=== PATIENT | male | born 1980 | race Caucasian/White ===

== ENCOUNTER 2016-09-18 19:42 | Emergency (ER) | payer BC ==
[2016-09-18 20:19] VITALS: BP 110/53
[2016-09-18] MEDS ORDERED: NS 0.9% 1000 ML* 1,000 ML BOLUS ONE (20:33)
[2016-09-18] MEDS ORDERED: Famotidine IV* 10 MG/ML 2 ML (20 mg) IV SLOW PU ONE (20:33)
[2016-09-18] MEDS ORDERED: Ondansetron INJ* 2 MG/ML VIAL IV ONE (20:33)
--- NOTE | 2016-09-18 20:55 | UC ---
Abdominal Pain Male HPI - HPI Summary HPI Summary: 35 yo male has the onset of diffuse abd pain and n/v x 2 no fever unable to get comfortable no radiation of pain to back no UTI symptoms diarrhea or black/bloody stools Hx PUD/ESOPHAGEAL EROSION TOOK 800MG MOTRIN LAST PM FOR HIS NECK - History of Current Complaint Chief Complaint: UCAbdominalPain Stated Complaint: STOMACH ACHE Time Seen by Provider: 09/18/16 20:25 Onset/Duration: Sudden Onset, Lasting Hours Timing: Constant Severity Initially: Moderate Severity Currently: Moderate Pain Intensity: 7 Pain Scale Used: 0-10 Numeric Location: Diffuse Radiates: No Character: Cramping Aggravating Factor(s):: Food Alleviating Factor(s): Nothing Associated Signs And Symptoms: Positive: Decreased Appetite, Nausea, Vomiting. Negative: Diaphoresis, Fever, Cough, Chest Pain, Dizzy, Back Pain, Constipation , Blood in Stool, Urinary Symptoms, Diarrhea, Penile Discharge - Allergies/Home Medications Allergies/Adverse Reactions: Allergies Allergy/AdvReac Type Severity Reaction Status Date / Time No Known Allergies Allergy Verified 09/18/16 20:19 Home Medications: Home Medications Cyclobenzaprine TAB* [Flexeril TAB*] 10 mg PO DAILY 09/18/16 [History Confirmed 09/18/16] Ibuprofen TAB* [Motrin TAB* 800 MG] 800 mg PO ONCE 09/18/16 [History Confirmed 09/18/16] Omeprazole CAP* [Prilosec CAP* 20 MG] 20 mg PO DAILY 09/18/16 [History Confirmed 09/18/16] PMH/Surg Hx/FS Hx/Imm Hx Previously Healthy: Yes GI/ History Of: Reports: Ulcer Denies: Gastrointestinal Bleed - Surgical History Surgical History: Yes Surgery Procedure, Year, and Place: left knee surgery - Family History Known Family History: Positive: Hypertension - Social History Alcohol Use: Occasionally Substance Use Type: None Smoking Status (MU): Never Smoked Tobacco Review of Systems Constitutional: Negative Skin: Negative Eyes: Negative ENT: Negative Respiratory: Negative Cardiovascular: Negative Gastrointestinal: Abdominal Pain, Vomiting Genitourinary: Negative Motor: Negative Neurovascular: Negative Musculoskeletal: Negative Neurological: Negative Psychological: Negative All Other Systems Reviewed And Are Negative: Yes Physical Exam Triage Information Reviewed: Yes Appearance: Well-Appearing, Well-Nourished, Pain Distress Vital Signs: Initial Vital Signs Temp 97.5 F 09/18/16 20:15 Pulse 97 09/18/16 20:15 Resp 18 09/18/16 20:15 BP 110/53 09/18/16 20:15 Pulse Ox 99 09/18/16 20:15 Eyes: Positive: Conjunctiva Clear ENT: Positive: Hearing grossly normal, TMs normal, Other: - dry lips. Negative : Nasal congestion, Nasal drainage, Tonsillar exudate, Trismus, Muffled/hoarse voice Neck: Positive: Supple, Nontender, No Lymphadenopathy Respiratory: Positive: Lungs clear, Normal breath sounds, No respiratory distress Cardiovascular: Positive: RRR, No Murmur. Negative: Tachycardia, Bradycardia Abdomen Description: Positive: Other: - diffusely tender. Negative: Nontender, Soft, CVA Tenderness (R), CVA Tenderness (L) Bowel Sounds: Positive: Present, Hyperactive Musculoskeletal: Positive: ROM Intact, No Edema Neurological: Positive: Alert Psychological Exam: Normal Skin Exam: Other - FACIAL PETECHIAL RASH Re-Evaluation - Re-Evaluation First Eval Re-Evaluation Time: 21:35 Change: Improved Comment: NO NAUSEA, PAIN 3-4 /10 Abd Pain Male Course/Dx - Course Course Of Treatment: PT IMPROVED AT D/C. NO NAUSEA AND ABD PAIN LESS BY 50%. HE DECLINES SUGGESTION TO GO TO ED BUT STATES HE WILL IF SYMPTOMS WORSEN - Differential Dx/Clinical Impression Provider Diagnoses: ACUTE GASTRITIS Discharge - Discharge Plan Condition: Stable Disposition: HOME Patient Education Materials: Gastritis (ED) Referrals: Obi Ozuna DO [Primary Care Provider] - If Needed Additional Instructions: GO TO THE ER TONIGHT IF SYMPTOMS WORSEN TO THE ER IN AM IF NOT MARKEDLY BETTER STOP IBUPROFEN NO ALEVE ...ASPIRIN OR SIMILAR MEDS TYLENOL IS OK YOU CAN TRY MYLANTA OR MAALOX 30 CC (2 TABLESPOONS) EVERY 2 HOURS NEEDED TO ER FOR BLOODY OR BLACK/TARRY STOOLS I SUGGEST YOU SEE YOUR MD LATER THIS WEEK OR EARLY NEXT
[2016-09-18] MEDS ORDERED: Ondansetron ODT TAB* 4 MG PO ONE (21:42)
[2016-09-19 10:37] LABS: Hematocrit 46 % (42-52); Hemoglobin 15.8 g/dl (14.0-18.0); Mean Corpuscular HGB Conc 34 g/dl (31-36); Mean Corpuscular Hemoglobin 30 pg (27-31); Mean Corpuscular Volume 87 fL (80-94); Mean Platelet Volume 8 um3 (7.4-10.4); Red Blood Count 5.32 10^6/ul (4.0-5.4); Red Cell Distribution Width 13 % (10.5-15); White Blood Count 14.5 10^3/ul (3.5-10.8)
[2016-09-19 10:56] LABS: ALT 35 U/L (7-52); Albumin 4.5 g/dL (3.2-5.2); Alkaline Phosphatase 67 U/L (34-104); BUN/Creatinine Ratio 13.4 (8-20); Blood Urea Nitrogen 11 mg/dL (6-24); CO2 Carbon Dioxide 24 mmol/L (22-32); Calcium 9.2 mg/dL (8.6-10.3); Chloride 104 mmol/L (101-111); EGFR African American 139.2 (>60); EGFR Non-African American 108.2 (>60); Globulin 2.3 g/dL (2-4); Glucose 97 mg/dL (70-100); Lipase < 10 U/L (11.0-82.0); Sodium 137 mmol/L (133-145); Total Protein 6.8 g/dL (6.4-8.9)
== END 2016-09-18 21:48 | disposition home or self-care (01) ==
LOC: UCCORT 19:42
DX: K29.00 Acute gastritis without bleeding (principal)
CPT/HCPCS: 36415; 80053; 83690; 85025; 96361; 96374; 96375; 99212; A9270-GY; G0463; J2405

== ENCOUNTER 2019-07-22 08:52 | Emergency (ER) | payer BC ==
--- OUTSIDE RECORDS SUMMARY | 2019-07-22 09:00 | XMS REPORT | Continuity of Care Document ---
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 [phone] Problems Active Problems Provider Date No current problems or disability Onset: 02/07/2012 Social History Type Date Description Comments Sex Unknown ETOH Use Currently consumes alcohol drinks beer less than once a week Tobacco Use Start: Unknown End: Patient is a former smoker quit 2012 Unknown Allergies, Adverse Reactions, Alerts Active Allergies Reaction Severity Comments Date Bee Sting Hives, Swells Up 06/13/2010 Medications Active Medications SIG Qnty Indications Ordering Provider Date Omeprazole 1 by mouth 90caps R10.13 Obi Ozuna, 07/31/[address] Ervin CPT Code Status Date Vaccine Lot # [id number] Given 08/16/2008 Tdap (Adacel) Ages 7 And Above Only [id number] Refused 05/21/2018 Afluria Imunization Vital Signs Date Vital Result Comment 07/10/2019 2:18pm Weight 200.00 lb Heart Rate 70 /min BP Systolic 130 mmHg BP Diastolic 80 mmHg Respiratory Rate 18 /min Height 68.5 inches 5'8.50" (07/2016) BMI (Body Mass Index) 30.0 kg/m2 05/21/2018 3:55pm Weight 190.00 lb Heart Rate 76 /min BP Systolic 126 mmHg BP Diastolic 78 mmHg Respiratory Rate 16 /min Height 68.5 inches 5'8.50" (07/2016) BMI (Body Mass Index) 28.5 kg/m2 Results Description No Information Available Procedures Description No Information Available Medical Devices Description No Information Available Encounters Description No Information Available Assessments Date Code Description Provider 07/10/2019 M25.572 Pain in LEFT ankle and joints of LEFT foot Brandy Brooks PA 07/10/2019 Z68.30 Body mass index (BMI) 30.0-30.9, adult Brandy Brooks PA Plan of Treatment Future Appointment(s):09/11/2019 2:00 pm - Obi Ozuna, DO at [facility]07/10/2019 - Brandy Brooks PAM25.572 Pain in LEFT ankle and joints of LEFT footNew Xrays :Ankle, Compl, Min. Of 3 Views LT, Scheduled: 07/10/19Comments:Will check x- rays for eval and treat as indicatedIce, rest, ibuprofenCall with worsening/ persisting symptomsFollow up:PrnZ68.30 Body mass index (BMI) 30.0-30.9, adult Functional Status Description No Information Available Mental Status Description No Information Available Referrals Description No Information Available
[2019-07-22 09:13] VITALS: BP 115/60
--- NOTE | 2019-07-22 10:04 | UC ---
Hand/Wrist HPI - HPI Summary HPI Summary: Patient is a 38yo male presenting with L pain in hand x3 hours. Patient states he was using a drill this morning and it "slipped and spun his hand around. Patient states pain immediately after but now only with movement. States it "feels like his bone is crunching when he moves hand." Notes some swelling over ulnar aspect of hand. Notes numbness and tingling of L 4th finger. Notes decreased ability to flex fingers all the way due to pain. - History Of Current Complaint Chief Complaint: UCUpperExtremity Stated Complaint: LEFT HAND INJURY Hx Obtained From: Patient Onset/Duration: Sudden Onset Severity Currently: Moderate Pain Intensity: 5 Pain Scale Used: 0-10 Numeric - Allergies/Home Medications Allergies/Adverse Reactions: Allergies Allergy/AdvReac Type Severity Reaction Status Date / Time No Known Allergies Allergy Verified 07/22/19 09:07 PMH/Surg Hx/FS Hx/Imm Hx Previously Healthy: Yes - Surgical History Surgical History: Yes Surgery Procedure, Year, and Place: left knee surgery - Family History Known Family History: Positive: Hypertension, Non-Contributory - Social History Occupation: Works From/At Home Alcohol Use: Weekly Substance Use Type: None Smoking Status (MU): Former Smoker When Did the Patient Quit Smoking/Using Tobacco: 2012 Review of Systems All Other Systems Reviewed And Are Negative: Yes Constitutional: Positive: Negative Skin: Negative: Bruising Respiratory: Positive: Negative Cardiovascular: Positive: Negative Neurovascular: Positive: Negative Musculoskeletal: Positive: Arthralgia - L hand, Decreased ROM - L finger flexion , Edema - L ulnar aspect of hand. Negative: Myalgia Neurological: Positive: Paresthesia, Numbness Physical Exam Triage Information Reviewed: Yes Appearance: Well-Appearing, No Pain Distress, Well-Nourished Vital Signs: Initial Vital Signs Temp 98 F 07/22/19 09:07 Pulse 56 07/22/19 09:07 Resp 18 07/22/19 09:07 BP 115/60 07/22/19 09:07 Pulse Ox 100 07/22/19 09:07 Vital Signs Reviewed: Yes Eyes: Positive: Conjunctiva Clear ENT: Positive: Hearing grossly normal Neck: Positive: Supple Respiratory: Positive: No respiratory distress Cardiovascular: Positive: Pulses Normal - strong radial pulses b/l, Brisk Capillary Refill Musculoskeletal Exam: Other Musculoskeletal: Positive: 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 Hand/Wrist Course/Dx - Course Course Of Treatment: Discussed 4th metacarpal fracture with patient. I applied ulnar gutter splint and instructed to follow up with ortho in the next day or two for further eval. Patient voiced understanding and agreed with treatment plan. - Differential Dx/Diagnosis Provider Diagnosis: Fracture of fourth metacarpal bone Discharge ED - Sign-Out/Discharge Documenting (check all that apply): Patient Departure All imaging exams completed and their final reports reviewed: Yes - Discharge Plan Condition: Stable Disposition: HOME Patient Education Materials: Hand Fracture (ED) Referrals: Talon Serrano MD [Medical Doctor] - 2 Days Additional Instructions: As discussed, the xrays of the hand did reveal a fracture. Keep the splint on until you follow up with orthopedics. Rest, ice, elevate the hand to help relieve pain and swelling. You may also use over the counter pain medications as directed for relief of pain. Follow up with the orthopedics referral listed below for further evaluation. Return or go to the emergency room if pain worsens or the hand becomes cold and numb,. - Billing Disposition and Condition Condition: STABLE Disposition: Home
== END 2019-07-22 10:43 | disposition home or self-care (01) ==
LOC: UCCORT 08:52
DX: S62.305A Unspecified fracture of fourth metacarpal bone, left hand, initial encounter for closed fracture (principal); W29.8XXA Contact with other powered hand tools and household machinery, initial encounter; Y92.9 Unspecified place or not applicable; Z87.891 Personal history of nicotine dependence
CPT/HCPCS: 99211; G0463

== ENCOUNTER 2019-07-27 16:25 | Day surgery (SDC) | payer BC ==
[2019-07-27] MEDS ORDERED: Buffered Lidocaine 1% SYRIN* 1 ML/SYRINGE INTRADERM ONE ×2 (17:56→18:02)
[2019-07-27] MEDS ORDERED: fentaNYL* 50 MCG/ML 2 ML VIAL (100 MCG VIAL) ONE ×3 (19:20→23:04)
[2019-07-27] MEDS ORDERED: Lidocaine 2% PF * 5 ML VIAL ONE (19:20)
[2019-07-27] MEDS ORDERED: KETAMINE HCL* 50 MG/ML 10 ML VIAL ONE (19:20)
[2019-07-27] MEDS ORDERED: Dexamethasone IV* 4 MG/ML 1 ML (4 MG) ONE (19:20)
[2019-07-27] MEDS ORDERED: Ketorolac INJ* 30 MG/ML 1 ML VIAL ONE (19:20)
[2019-07-27] MEDS ORDERED: Ondansetron INJ* 2 MG/ML VIAL ONE (19:20)
[2019-07-27] MEDS ORDERED: Propofol* 10 MG/ML 20 ML BTL ONE (19:20)
[2019-07-27] MEDS ORDERED: Midazolam* 1 MG/ML 5 ML VIAL (5 MG) ONE ×2 (19:21→20:43)
[2019-07-27] MEDS ORDERED: ceFAZolin 2 GM in NS PREMIX(*) 2 GM/100 ML BAG IVPB ONE (20:05)
[2019-07-27] MEDS ORDERED: Bupivacaine 0.25% SDV PF* 10 ML VIAL INJ ONE (21:26)
[2019-07-27] MEDS ORDERED: fentaNYL* 50 MCG/ML 2 ML VIAL (100 MCG VIAL) IV PRN (21:35)
[2019-07-27] MEDS ORDERED: Ondansetron INJ* 2 MG/ML VIAL IV PRN (21:35)
[2019-07-27] MEDS ORDERED: Naloxone* 0.4 MG/ML 1 ML VIAL IV PRN (21:35)
[2019-07-27 23:41] VITALS: BP 135/90
--- NOTE | 2019-07-28 03:35 | OP ---
DATE OF OPERATION: 07/27/19 - [facility] DATE OF : 84 SURGEON: Rakesh Cooper MD CULINARY CHEF: SETH Mayfield. An drug safety assistant was needed for the procedure to aid in positioning of the arm and retraction. ANESTHESIOLOGIST: Dr. Servin. ANESTHESIA: General. PRE-OP DIAGNOSIS: Left fourth metacarpal fracture. POST-OP DIAGNOSIS: Left fourth metacarpal fracture. OPERATIVE PROCEDURE: Open reduction internal fixation of left displaced fourth metacarpal fracture. INDICATIONS: Mr. Horne has a fourth metacarpal fracture. We talked about risks and benefits and treatment options. He wished to proceed. ESTIMATED BLOOD LOSS: 2 mL. COMPLICATIONS: None. FINDINGS: See above and below. DESCRIPTION OF PROCEDURE: Mr. Horne was seen in the preoperative holding area. The correct side, site, and procedure were identified. We came back to the operating room. The arm was prepped and draped in the usual fashion. A time -out was performed. The arm was exsanguinated and the tourniquet was inflated to 250 mmHg. I made a longitudinal incision over the dorsum of the fourth metacarpal. Dissection was carried down. There was a sensory nerve that was preserved. There was one junctura radially that was released. The tendon was retracted ulnarly. I incised the periosteum and raised subperiosteal flaps to expose the fracture. Fracture hematoma was curetted out and removed with the suction. I then placed a point reduction clamp to reduce the fracture. I then placed a 1.5 mm countersunk lag screw. I then selected a little Y-type plate of the [employer] variable angle handset. This was a 2.0 mm plate. It was secured with a combination of locking and cortical screws proximally. The first screw went in the oblong hole. I then confirmed the alignment of the plate. Distally, I placed one of the screws in lag screw fashion across the fracture through the plate. The remainder of the screws distally were filled in the appropriate fashion. The last screw was again a cortical locking screw as it was close to the metacarpal head. At this point, the alignment was very good. Everything was confirmed clinically as well as fluoroscopically. I went ahead and irrigated out the wound. The periosteal layer was closed over the plate with 4- 0 Prolene suture. The junctura was repaired with 4-0 Prolene suture. The skin was closed with 4-0 nylon suture. 0.25% Marcaine was infiltrated. He was placed in short-arm splint out to the PIP joint. Tourniquet was deflated. He was taken to the recovery room in stable condition. [id number]/[facility] #: [id number] MTDD
== END 2019-07-27 23:40 | disposition home or self-care (01) ==
LOC: OR 16:25
PROVIDERS: ATTEND Orthopaedic Surgery Hand Surgery
DX: S62.325A Displaced fracture of shaft of fourth metacarpal bone, left hand, initial encounter for closed fracture (principal); K21.9 Gastro-esophageal reflux disease without esophagitis; Z87.891 Personal history of nicotine dependence; W31.2XXA Contact with powered woodworking and forming machines, initial encounter; Y93.H3 Activity, building and construction; Y92.9 Unspecified place or not applicable; Y99.0 Civilian activity done for income or pay
CPT/HCPCS: 76000; C1713; J0690; J1100; J1885; J2250; J2405; J2704; J3010; J3490